=== PATIENT | male | born 1960 | race Caucasian/White ===

== ENCOUNTER → 2023-04-13 | Emergency (ER) | payer OTHER ==
[~2023-04-13] MED LIST: ASPIRIN 81 MG CHEWABLE TABLET ONE; AZITHROMYCIN 250 MG TAB ONE; GUAIFENESIN/DM 5 ML UCUP ONE; NA CHLORIDE 0.9% 1,000 ML ONE
--- OUTSIDE RECORDS SUMMARY | 2023-04-13 19:51 | XMS REPORT | Continuity of Care Document ---
Author Name Unknown Address [address] [place] [address] [address] [id number] [facility] thconnect Address [address] [place] [address] Care Team Providers Care Insurance Follow Up Rep Name Role Phone Goldfarb_D Attending Clinician Unavailable Goldfarb_D Admitting Clinician Unavailable Payers Payer Name Policy Type Policy Number Effective Date Expirati on Date Source [employer] (POS) [id number] 00:00:00 Encounters Start Date/Time End Date/Time Encounter Type Admission Type Attending Clinicians Care Facility Care Department Encounter ID Source 2021-02-16 04:12:00 2021-02-16 04:12:00 Outpatient Goldfarb[facility]D [facility] [id number] [facility] 2021-01-12 03:32:00 2021-01-12 03:32:00 Outpatient Goldfarb[facility]D [facility] [id number] [facility] 2020-12-08 07:23:00 2020-12-08 07:23:00 Outpatient Goldfarb_D [facility]U [id number] [facility]
[2023-04-13 20:18] LABS: Absolute Lymphocytes (CBC) 1.3 K/uL (0.7-4.9); Hematocrit 32.8 % (39.6-49.0); Lymphocytes % 15.3 % (15.3-44.8); MCV 92.4 fL (80-100); MPV 8.8 fL (7.6-11.3); Platelets 90 thou/uL (152-406); RBC Red Blood Cell Count 3.55 M/uL (4.33-5.43)
[2023-04-13 20:30] LABS: SARS-CoV-2 Antigen Rapid Res Negative (Negative)
--- NOTE | 2023-04-13 20:31 | RAD REPORT ---
EXAM DESCRIPTION[facility]23 8:13 pm CLINICAL HISTORY: Dyspnea;Pain COMPARISON: Chest Pa And Lat (2 Views) dated 04/07/2023 TECHNIQUE: Portable AP view of the chest. FINDINGS: The lungs are clear. No pneumothorax or effusion. The cardiomediastinal contours are unre markable. IMPRESSION: No acute cardiopulmonary process.
[2023-04-13 20:38] LABS: Albumin 2.8 g/dL (3.4-5.0); Bilirubin Direct 0.3 mg/dL (0-0.2); Bilirubin Indirect, Calculated 0.5 mg/dL (0.2-0.8); Bilirubin Total 0.8 mg/dL (0.2-1.0); Magnesium 2.1 mg/dL (1.6-2.4); Potassium 4.1 mEq/L (3.5-5.1); Protein, Total 7.7 g/dL (6.4-8.2); Troponin High Sensitivity 5.3 pg/mL (<58.9)
[2023-04-13 20:58] LABS: Protime INR 1.22
--- NOTE | 2023-04-13 22:12 | RAD REPORT ---
EXAM DESCRIPTION: CT - Chest Abdomen Pelvis W Cont - 04/13/2023 9:19 pm CLINICAL HISTORY: Chest and abdomen pain. History of inflammatory bowel disease. COMPARISON: No comparisons TECHNIQUE: Thin axial CT images of the chest, abdomen, and pelvis, performed following intravenous a dministration of 100mL Isovue-300. Multiplanar reformats were generated and reviewed. All CT scans are performed using dose optimization technique as appropriate and may include automated exposure control or mA/KV adjustment according to patient size. FINDINGS: The lungs are clear of focal consolidation. Multiple bilateral pulmonary nodules, includin g a 4 mm peripheral left upper lobe nodule on axial image 57, 4 mm peripheral right upper lobe nodule on axial image 50, and a 5 mm peripheral right lower lobe nodule on axial image 65. Fusiform aneurys mal dilation of the ascending thoracic aorta measuring 4.2 cm in caliber.No pleural or pericardial ef fusion.No intrathoracic adenopathy. The liver, pancreas, adrenal glands and kidneys are within normal limits. Spleen is enlarged measuri ng 15.3 cm in greatest caliber. Nonspecific ill-defined areas of hypoattenuation in the spleen, may r elate to enhancement differences related to contrast timing. Few gallstones within a suboptimally dis tended gallbladder. Incidentally noted small duodenal diverticulum. Sequelae of right hemicolectomy. No bowel obstruction , free air, free fluid or abscess. Left inguinal hernia containing fat and trace amount of fluid. . No pathologic lymphadenopathy in the abdomen or pelvis. No worrisome osseous finding. IMPRESSION: No acute findings. Splenomegaly. Nonspecific multiple pulmonary nodules not exceeding 5 mm, favored to be of benign nature given size. Given multiplicity, a follow-up CT is recommended in 3-6 months to re-evaluate the findings. Sequelae of right hemicolectomy. Left inguinal hernia containing trace fluid and fat. Cholelithiasis.
--- NOTE | 2023-04-13 22:20 | EDPHYS ---
Physician Documentation [facility] Name: Rene Sullivan Age: 63 yrs Sex: Male : 1960 Arrival Date: 04/13/2023 Time: 19:49 Bed 3 Private MD: ED Physician David Dunn HPI: 04/13 20:16 This 63 yrs old Male presents to ER via Ambulatory with complaints of Chest sp4 Pain, Shortness Of Breath, RIB CAGE PRESSURE/PAIN. 20:28 63-year-old male with PMH of Crohn's disease and inflammatory bowel disease, presents sp4 with a worsening left lower chest pain associated with pleuritic pain.. Patient has been feeling unwell for over 2 weeks he was diagnosed with sinusitis and prescribed course of amoxicillin 2 weeks ago. Later patient was diagnosed with COVID approximately 1-1/2 weeks ago and had some x-rays at Dr. Smith's office that were negative. Patient then developed fever and worsening pleuritic left lower chest pain associated with left upper abdominal pain and presented here for worsening chest pain.. 20:28 Patient is on Humira every 2 weeks injection, so azathioprine 100 mg every day history sp4 of ulcerative colitis. He also history of partial colectomy at this time patient is also on Paxlovid for COVID he has 2 more days left of Paxlovid. Patient also takes cyanocobalamin injections, tamsulosin and Flexeril for muscle soreness. . Historical: - Allergies: 20:02 No Known Allergies; jj7 - PMHx: 20:02 Crohn's disease; ULCERATIVE COLITIS; jj7 - PSHx: 20:03 ABD RESECTION; jj7 - Immunization history:: Adult Immunizations up to date. - Social history:: Smoking status: Patient denies any tobacco usage or history of. Patient uses alcohol, occasionally. Patient/guardian denies using street drugs. - Family history:: not pertinent. ROS: 20:28 Constitutional: Negative for and weight loss, positive fevers positive chills, sp4 positive left lower pleuritic chest pain positive cough, positive shortness of breath. 20:28 All other systems are negative, Exam: 20:28 Constitutional: This is a well developed, well nourished patient who is awake, alert, sp4 and in no acute distress. Head/Face: Normocephalic, atraumatic. Eyes: Pupils equal round and reactive to light, extra-ocular motions intact. Lids and lashes normal. Conjunctiva and sclera are not injected. Cornea within normal limits. Periorbital areas with no swelling, redness, or edema. ENT: Nares patent. No nasal discharge, no septal abnormalities noted. Tympanic membranes are normal and external auditory canals are clear. Oropharynx with no redness, swelling, or masses, exudates, or evidence of obstruction, uvula midline. Mucous membranes moist. Neck: Trachea midline, no thyromegaly or masses palpated, and no cervical lymphadenopathy. Supple, full range of motion without nuchal rigidity, or vertebral point tenderness. Chest/axilla: Normal chest wall appearance and motion. Nontender with no deformity. No lesions are appreciated. Cardiovascular: Regular rate and rhythm with a normal S1 and S2. No gallops, murmurs, or rubs. Normal PMI, no JVD. No pulse deficits. Respiratory: Lungs have equal breath sounds bilaterally, clear to auscultation and percussion. No rales, rhonchi or wheezes noted. No increased work of breathing, no retractions or nasal flaring. Abdomen/GI: Soft, non-tender, with normal bowel sounds. No distension or tympany. No guarding or rebound. No evidence of tenderness throughout. Back: No spinal tenderness. No costovertebral tenderness. Skin: Warm, dry with normal turgor. Normal color with no rashes, no lesions, and no evidence of cellulitis. MS/ Extremity: Pulses equal, no cyanosis. Neurovascular intact. Full, normal range of motion. Neuro: Awake and alert, GCS 15, oriented to person, place, time, and situation. Cranial nerves II-XII grossly intact. Motor strength 5/5 in all extremities. Sensory grossly intact. Psych: Awake, alert, with orientation to person, place and time. Behavior, mood, and affect are within normal limits 20:28 ECG was reviewed by the Attending Physician. EKG time 1956 there is normal sinus rhythm sp4 at the rate of 78. Vital Signs: 20:00 BP 132 / 78; Pulse 79; Resp 16; Temp 98.7; Pulse Ox 100% ; Weight 62.6 kg; Height 5 ft. jj7 7 in. ; 20:57 BP 118 / 85; Pulse 76; Resp 18; Pulse Ox 95% on R/A; rv 21:43 BP 145 / 88; Pulse 71; Resp 17 S; Pulse Ox 96% on R/A; jw7 22:17 BP 137 / 75; Pulse 72; Resp 18; Temp 98; Pulse Ox 95% on R/A; rv 20:00 Body Mass Index 21.61 (62.60 kg, 170.18 cm) [facility] MDM: 20:21 Patient medically screened. sp4 22:18 HEART Score: History: Slightly Suspicious (0), ECG: Normal (0), Age: > 45 and < 65 sp4 years (1), Risk Factors: 1 or 2 risk factors (1), Troponin: < or = 1 x Normal Limit (0), Total Score = 2. Data reviewed: vital signs, nurses notes, lab test result(s), EKG, radiologic studies, CT scan, plain films. ED course: EXAM DESCRIPTION: CT - Chest Abdomen Pelvis W Cont - 04/13/2023 9:19 pm CLINICAL HISTORY: Chest and abdomen pain. History of inflammatory bowel disease. COMPARISON: No comparisons TECHNIQUE: Thin axial CT images of the chest, abdomen, and pelvis, performed following intravenous administration of 100mL Isovue-300. Multiplanar reformats were generated and reviewed. All CT scans are performed using dose optimization technique as appropriate and may include automated exposure control or mA/KV adjustment according to patient size. FINDINGS: The lungs are clear of focal consolidation. Multiple bilateral pulmonary nodules, including a 4 mm peripheral left upper lobe nodule on axial image 57, 4 mm peripheral right upper lobe nodule on axial image 50, and a 5 mm peripheral right lower lobe nodule on axial image 65. Fusiform aneurysmal dilation of the ascending thoracic aorta measuring 4.2 cm in caliber.No pleural or pericardial effusion.No intrathoracic adenopathy. The liver, pancreas, adrenal glands and kidneys are within normal limits. Spleen is enlarged measuring 15.3 cm in greatest caliber. Nonspecific ill-defined areas of hypoattenuation in the spleen, may relate to enhancement differences related to contrast timing. Few gallstones within a suboptimally distended gallbladder. Incidentally noted small duodenal diverticulum. Sequelae of right hemicolectomy. No bowel obstruction, free air, free fluid or abscess. Left inguinal hernia containing fat and trace amount of fluid. . No pathologic lymphadenopathy in the abdomen or pelvis. No worrisome osseous finding. IMPRESSION: No acute findings. Splenomegaly. Nonspecific multiple pulmonary nodules not exceeding 5 mm, favored to be of benign nature given size. Given multiplicity, a follow-up CT is recommended in 3-6 months to re-evaluate the findings. Sequelae of right hemicolectomy. Left inguinal hernia containing trace fluid and fat. Cholelithiasis. Signed By: Ryan Shay 04/13 19:56 Order name: Basic Metabolic Panel; Complete Time: 21:10 [facility] 04/13 19:56 Order name: CBC with Diff [facility] 04/13 19:56 Order name: LFT's; Complete Time: 21:10 [facility] 04/13 19:56 Order name: Magnesium; Complete Time: 21:10 [facility] 04/13 19:56 Order name: NT PRO-BNP; Complete Time: 21:10 [facility] 04/13 19:56 Order name: PT-INR; Complete Time: 21:10 [facility] 04/13 19:56 Order name: Troponin HS; Complete Time: 21:10 [facility] 04/13 19:56 Order name: Lipase; Complete Time: 21:10 [facility] 04/13 19:56 Order name: Flu; Complete Time: 21:10 [facility] 04/13 19:56 Order name: SARS RAPID; Complete Time: 21:10 [facility] 04/13 19:56 Order name: D-Dimer; Complete Time: 21:10 [facility] 04/13 20:21 Order name: Blood Culture Adult (2) [facility] 04/13 21:20 Order name: Manual Differential [facility] 04/13 19:56 Order name: XRAY Chest (1 view); Complete Time: 21:10 [facility] 04/13 20:17 Order name: CT Chest, Abdomen, Pelvis - W/Contrast; Complete Time: 22:17 [facility] 04/13 19:56 Order name: EKG; Complete Time: 19:56 [facility] 04/13 19:56 Order name: Cardiac monitoring; Complete Time: 20:41 [facility] 04/13 19:56 Order name: EKG - Nurse/Tech; Complete Time: 20:49 [facility] 04/13 19:56 Order name: IV Saline Lock; Complete Time: 20:41 [facility] 04/13 19:56 Order name: Labs collected and sent; Complete Time: 20:41 [facility] 04/13 19:56 Order name: O2 Per Protocol; Complete Time: 20:41 [facility] 04/13 19:56 Order name: O2 Sat Monitoring; Complete Time: 20:41 [facility] EC:28 Rate is 78 beats/min. Rhythm is regular, Normal Sinus Rhythm. QRS [place] is Normal. [place] sp4 interval is normal. QRS interval is normal. QT interval is normal. No Q waves. T waves are Normal. No ST changes noted. Clinical impression: Normal ECG. Interpreted by me. Reviewed by me. Administered Medications: 22:19 Discontinued: ns 0.9% 1000 ml IV at 125 ml/hr continuous rv 20:56 Drug: NS 0.9% IV 500 ml IV at bolus once Route: IV; Rate: bolus; Site: left forearm; rv 22:19 Follow up: IV Status: Completed infusion; IV Intake: 500ml rv 20:56 Drug: NS 0.9% IV 1000 ml IV at 125 ml/hr continuous Route: IV; Rate: 125 ml/hr; Site: rv left forearm; 22:19 Follow up: IV Status: Order to discontinue infusion rv 20:56 Drug: Aspirin PO Chewable Tablet 162 mg PO once Route: PO; rv 22:19 Follow up: Response: No adverse reaction rv 20:56 Drug: Dextromethorphan-Guaifenesin PO Liquid 10 mg-100 mg/5 mL 10 ml PO once Route: PO; rv 22:18 Follow up: Response: No adverse reaction rv 22:25 Drug: AZITHromycin PO 500 mg PO once Route: PO; rv 22:38 Follow up: Response: Medication administered at discharge. rv Disposition Summary: 04/13/23 22:20 Discharge Ordered Notes: Location: Home sp4 Problem: new sp4 Symptoms: have improved sp4 Condition: Stable sp4 Diagnosis - Acute bronchitis, unspecified sp4 - Bacterial bronchitis,, left pleuritic chest wall pain sp4 Followup: sp4 - With: Rudi Smith MD - When: 7 - 10 days - Reason: Recheck today's complaints Discharge Instructions: - Discharge Summary Sheet sp4 - Acute Bronchitis, Adult sp4 Forms: - Patient Portal Instructions sp4 Prescriptions: - dextromethorphan-guaifenesin 60-1,200 mg Oral Tablet, Extended Release 12 hr - take 1 tablet ORAL route every 12 hours PRN cough; 42 tablet; Refills: 0, sp4 Product Selection Permitted - Zithromax Z-Jarod 250 mg Oral Tablet - take 1 tablet ORAL route as directed for 5 days Day 1 - take two (2) tablets sp4 one time. Day 2, 3, 4 , 5 take one (1) tablet once daily.; 6 tablet; Refills: 0, Product Selection Permitted Signatures: Dispatcher [employer] Reynold Arredondo MD MD cha Vicente, Ronaldo, RN RN rv Johnson, Juwairiyah, RN RN jj7 David Dunn MD MD sp4
--- NOTE | 2023-04-13 22:20 | ER ---
Nurse's Notes [facility] Name: Rene Sullivan Age: 63 yrs Sex: Male : 1960 Arrival Date: 04/13/2023 Time: 19:49 Bed 3 Private MD: Diagnosis: Acute bronchitis, unspecified;Bacterial bronchitis,, left pleuritic chest wall pain Presentation: 04/13 20:00 Chief complaint: Patient states: COUGH AND LEFT SIDED RIB PAIN/BRUISE/ HARD TIME TAKING jj7 A DEEP BREATH X2 WEEKS. Coronavirus screen: cough unrelated to allergies. Ebola Screen: No symptoms or risks identified at this time. Initial Sepsis Screen: Does the patient meet any 2 criteria? No. Patient's initial sepsis screen is negative. Does the patient have a suspected source of infection? No. Patient's initial sepsis screen is negative. Risk Assessment: Do you want to hurt yourself or someone else? Patient reports no desire to harm self or others. 20:00 Method Of Arrival: Ambulatory j7 20:00 Acuity: ESTELITA 3 jj7 22:18 Onset of symptoms was April 13, 2023. rv Triage Assessment: 20:03 General: Appears in no apparent distress. comfortable, Behavior is calm, cooperative, jj7 appropriate for age. Pain: Complains of pain in left lateral anterior chest. Cardiovascular: Reports LEFT RIB PAIN. Historical: - Allergies: 20:02 No Known Allergies; jj7 - PMHx: 20:02 Crohn's disease; ULCERATIVE COLITIS; jj7 - PSHx: 20:03 ABD RESECTION; jj7 - Immunization history:: Adult Immunizations up to date. - Social history:: Smoking status: Patient denies any tobacco usage or history of. Patient uses alcohol, occasionally. Patient/guardian denies using street drugs. - Family history:: not pertinent. Screenin:58 [facility] ED Fall Risk Assessment (Adult) History of falling in the last 3 months, rv including since admission No falls in past 3 months (0 pts) Score/Fall Risk Level 0 - 2 = Low Risk Oriented to surroundings, Maintained a safe environment, Educated pt \T\ family on fall prevention, incl call for assistance when getting out of bed, Assessed \T\ reinforced patient's understanding of fall precautions. Abuse screen: Denies threats or abuse. Denies injuries from another. Nutritional screening: No deficits noted. Tuberculosis screening: No symptoms or risk factors identified. Assessment: 20:57 General: Appears uncomfortable, Behavior is calm, cooperative. Pain: Complains of pain rv in chest Pain does not radiate. Pain began suddenly. Neuro: Level of Consciousness is awake, alert, obeys commands, Oriented to person, place, time, situation. Cardiovascular: Capillary refill < 3 seconds Patient's skin is warm and dry. Respiratory: Reports shortness of breath at rest cough that is non-productive, persistent pain with cough Airway is patent Respiratory effort is even, unlabored. GI: No signs and/or symptoms were reported involving the gastrointestinal system. : No signs and/or symptoms were reported regarding the genitourinary system. Derm: Skin is intact. 21:42 Reassessment: Patient appears in no apparent distress at this time. No changes from [facility] previously documented assessment. Patient and/or family updated on plan of care and expected duration. Pain level reassessed. Patient is alert, oriented x 3, equal unlabored respirations, skin warm/dry/pink. Vital Signs: 20:00 BP 132 / 78; Pulse 79; Resp 16; Temp 98.7; Pulse Ox 100% ; Weight 62.6 kg; Height 5 ft. j7 7 in. ; 20:57 BP 118 / 85; Pulse 76; Resp 18; Pulse Ox 95% on R/A; rv 21:43 BP 145 / 88; Pulse 71; Resp 17 S; Pulse Ox 96% on R/A; jw7 22:17 BP 137 / 75; Pulse 72; Resp 18; Temp 98; Pulse Ox 95% on R/A; rv 20:00 Body Mass Index 21.61 (62.60 kg, 170.18 cm) j7 ED Course: 19:50 Patient arrived in ED. jj6 20:00 Inserted saline lock: 20 gauge in left forearm, using aseptic technique. Blood rv collected. 20:00 No provider procedures requiring assistance completed. Patient maintains SpO2 rv saturation greater than 95% on room air. 20:02 Triage completed. jj7 20:03 Arm band placed on right wrist. EKG completed in triage. Results shown to . jj7 20:15 XRAY Chest (1 view) In Process Unspecified. EDMS 20:16 aDvid Dunn MD is Attending Physician. sp4 20:47 Arya Bergeron, RN is Primary Nurse. rv 20:58 Patient has correct armband on for positive identification. Client placed on continuous rv cardiac and pulse oximetry monitoring. NIBP monitoring applied. residential monitor on. 21:21 CT Chest, Abdomen, Pelvis - W/Contrast In Process Unspecified. EDMS 22:19 Rudi Smith MD is Referral Physician. sp4 22:19 IV discontinued, intact, bleeding controlled, No redness/swelling at site. Pressure rv dressing applied. Administered Medications: 22:19 Discontinued: ns 0.9% 1000 ml IV at 125 ml/hr continuous rv 20:56 Drug: NS 0.9% IV 500 ml IV at bolus once Route: IV; Rate: bolus; Site: left forearm; rv 22:19 Follow up: IV Status: Completed infusion; IV Intake: 500ml rv 20:56 Drug: NS 0.9% IV 1000 ml IV at 125 ml/hr continuous Route: IV; Rate: 125 ml/hr; Site: rv left forearm; 22:19 Follow up: IV Status: Order to discontinue infusion rv 20:56 Drug: Aspirin PO Chewable Tablet 162 mg PO once Route: PO; rv 22:19 Follow up: Response: No adverse reaction rv 20:56 Drug: Dextromethorphan-Guaifenesin PO Liquid 10 mg-100 mg/5 mL 10 ml PO once Route: PO; rv 22:18 Follow up: Response: No adverse reaction rv 22:25 Drug: AZITHromycin PO 500 mg PO once Route: PO; rv 22:38 Follow up: Response: Medication administered at discharge. rv Medication: 20:57 VIS not applicable for this client. rv Intake: 22:19 IV: 500ml; Total: 500ml. rv Outcome: 22:18 Discharged to home ambulatory, with family, rv 22:18 Condition: good 22:20 Discharge ordered by . sp4 22:38 Discharge instructions given to patient, family, Instructed on discharge instructions, rv follow up and referral plans. medication usage, Demonstrated understanding of instructions, follow-up care, medications, Prescriptions given X 2, 22:38 Patient left the ED. rv Signatures: Dispatcher [facility] Arya Bergeron, RN RN rv Michell Saavedra jj6 Nuria Kamara RN RN jw7 Anthony Kenney RN RN jj7 David Dunn MD MD sp4
[2023-04-13 22:52] LABS: Blood Morphology Comment NOT SEEN (NOT SEEN); Platelet Estimate DECR
--- NOTE | 2023-04-14 12:56 | EKG ---
Test Date: 2023-04-13 Test Time: 19:57:20 Dining Manager: RV MEASUREMENT RESULTS: Intervals: Rate: 78 AK: 152 QRSD: 96 QT: 382 QTc: 435 [place]: P: 62 AK: 152 QRS: 70 T: 54 INTERPRETIVE STATEMENTS: Normal sinus rhythm Septal infarct, age undetermined Abnormal ECG Compared to ECG 08/16/1998 13:01:00 Myocardial infarct finding now present Sinus arrhythmia no longer present Left ventricular hypertrophy no longer present Electronically Signed On 04-14-23 12:52:39 STEVEDORE DOCK by Klaus Gutierrez
[2023-04-14 16:39] VITALS: BP 137/75; TEMP 98; O2SAT 95
== END ==
LOC: ER 19:49
DX: J20.9 Acute bronchitis, unspecified (principal); Z11.52 Encounter for screening for COVID-19
CPT/HCPCS: 93005; 87040 ×2; 85025; 80048; 36415; 83735; 85610; 85379; 80076; 84484; 83690; 83880; 87804 ×2; 71260; 74177; 71045; 87811; Q9967; J7030